=== PATIENT | female | born 1995 | race Caucasian/White ===

== ENCOUNTER 2021-01-10 13:49 | Day surgery (SDC) | payer OTHER ==
[~2021-01-10] VITALS: Ht 149.9 cm; Wt 70.9 kg
[2021-01-10] MEDS ORDERED: OSTEOBLOX CF C1 EACH (14:17)
[2021-01-10] MEDS ORDERED: ELDERTONIC LIQ473 ML (14:17)
[2021-01-10] MEDS ORDERED: PROG100 (14:17)
--- NOTE | 2021-01-10 14:21 | NUR ---
01/10/21 1421 Marcy Lozada 1 TRY RIGHT HAND NO FLASH
== END 2021-01-10 15:35 | disposition home or self-care (01) ==
LOC: ORSCSDS 13:49
PROVIDERS: Internal Medicine Gastroenterology
PROC: 0DJD8ZZ Inspection of Lower Intestinal Tract, Via Natural or Artificial Opening Endoscopic (ICD-10-PCS; principal; 2021-01-10 15:15)
PROC: 0DB68ZX Excision of Stomach, Via Natural or Artificial Opening Endoscopic, Diagnostic (ICD-10-PCS; principal; 2021-01-10 15:15)
PROC: 0DB98ZX Excision of Duodenum, Via Natural or Artificial Opening Endoscopic, Diagnostic (ICD-10-PCS; principal; 2021-01-10 15:15)
DX: D50.9 Iron deficiency anemia, unspecified (principal); D51.9 Vitamin B12 deficiency anemia, unspecified; K29.50 Unspecified chronic gastritis without bleeding; R53.83 Other fatigue
CPT/HCPCS: 88305; 88342; J2250; J2704; J7120

== ENCOUNTER → 2024-04-01 | Outpatient (CLI) | payer BC, OTHER ==
[~2024-04-01] MED LIST: ELDERTONIC LIQ473 ML; OSTEOBLOX CF C1 EACH; PROG100
== END | disposition home or self-care (01) ==
LOC: LAB SHORT 11:31
DX: Z34.83 Encounter for supervision of other normal pregnancy, third trimester (principal); Z3A.36 36 weeks gestation of pregnancy
CPT/HCPCS: 87081; 87086; 87150

== ENCOUNTER 2024-04-29 18:52 | Inpatient (IN) | payer BC ==
[~2024-04-29] VITALS: Ht 149.9 cm; Wt 90.8 kg
[2024-04-29] MEDS ORDERED: Lactated Ringer's 1,000 ML IV SCH (19:05)
[2024-04-29] MEDS ORDERED: LEVOTHYROXINE137 M11 PO (19:48)
[2024-04-29] MEDS ORDERED: 1/2 NS 250ml250 ML (19:48)
[2024-04-29] MEDS ORDERED: Misoprostol 25 MCG Tab VAG SCH (20:00)
[2024-04-29 20:16] VITALS: BP 127/71
[2024-04-29 20:19] LABS: BASOPHILS ABSOLUTE AUTO 0.02 K/mm3 (0.00-0.23); BASOPHILS PERCENT AUTO 0 % (0-2); EOSINOPHILS ABSOLUTE AUTO 0.07 K/mm3 (0.00-0.68); EOSINOPHILS PERCENT AUTO 1 % (0-6); Hematocrit 33.8 % (33.0-51.0); Hemoglobin 11.7 g/dL (11.5-16.0); IMMATURE GRAN ABSOLUTE AUTO 0.04 K/mm3 (0.00-0.10); IMMATURE GRAN PERCENT AUTO 1 % (0-1); LYMPHOCYTES ABSOLUTE AUTO 2.32 K/mm3 (0.84-5.20); LYMPHOCYTES PERCENT AUTO 28 % (21-46); MONOCYTES ABSOLUTE AUTO 0.86 K/mm3 (0.16-1.47); MONOCYTES PERCENT AUTO 10 % (4-13); Mean Corpuscular HGB 29.2 pg (26.0-34.0); Mean Corpuscular HGB Conc 34.6 g/dL (31.5-36.5); Mean Corpuscular Volume 84 fL (80-100); Mean Platelet Volume 11.3 fL (9.1-12.4); NEUTROPHILS ABSOLUTE AUTO 5.03 K/mm3 (1.96-9.15); NEUTROPHILS PERCENT AUTO 60 % (41-73); Platelet Count 273 K/mm3 (150-400); RDW Standard Deviation 43.8 fL (35.1-46.3); Red Blood Cell Count 4.01 M/mm3 (3.80-5.20); White Blood Cell Count 8.34 K/mm3 (4.00-11.30)
[2024-04-30] VITALS (51 sets, daily range): BP systolic 108–178; BP diastolic 53–87
[2024-04-30] MEDS ORDERED: Levothyroxine Sodium 0.137 MG Tab PO SCH (06:00)
[2024-04-30] MEDS ORDERED: Misoprostol 200 MCG Tab PR PRN ×2 (06:10→22:45)
[2024-04-30] MEDS ORDERED: Acetaminophen 500 MG Tab PO PRN ×2 (06:10→22:45)
[2024-04-30] MEDS ORDERED: OXYTOCIN/RINGER'S LACTATE 500 ML IV PRN (06:10)
[2024-04-30] MEDS ORDERED: Ondansetron HCl 2 MG / ML 2ML Vial IV PRN ×2 (06:10→22:45)
[2024-04-30] MEDS ORDERED: Misoprostol 200 MCG Tab BC PRN (06:10)
[2024-04-30] MEDS ORDERED: Methylergonovine Maleate 0.2MG / ML 1ML Amp IM PRN ×2 (06:10→22:45)
[2024-04-30] MEDS ORDERED: Carboprost Tromethamine 250 MCG/ML 1ML Amp IM PRN ×2 (06:10→22:40)
[2024-04-30] MEDS ORDERED: Oxytocin 10 Unit / ML Vial IM PRN (06:10)
[2024-04-30] MEDS ORDERED: Calcium Carbonate 500 MG Tab Chew PO PRN (06:15)
[2024-04-30] MEDS ORDERED: Tranexamic Acid 100 ML IV PRN (06:20)
[2024-04-30] MEDS ORDERED: FentaNYL 2mcg/ml-Bup 0.1% Epd 250 ML EPI PRN (07:15)
[2024-04-30] MEDS ORDERED: ePHEDrine Sulfate 50 MG/ML 1ML Injection XX PRN (07:15)
[2024-04-30] MEDS ORDERED: Lactated Ringer's 1,000 ML IV SCH ×2 (07:15)
[2024-04-30] MEDS ORDERED: FentaNYL Citrate 50 MCG/ML 2 ML Injection IV PRN (07:20)
[2024-04-30] MEDS ORDERED: IBUP800 PO (08:40)
[2024-04-30] MEDS ORDERED: OXYTOCIN/RINGER'S LACTATE 500 ML IV SCH (10:15)
[2024-04-30] MEDS ORDERED: NS 1,000 ML IV ONE (18:14)
[2024-04-30] MEDS ORDERED: NS 1,000 ML IV SCH (18:45)
[2024-04-30] MEDS ORDERED: CeFAZolin Sodium 2,000 MG in NS 100 ML IV SCH (20:25)
[2024-04-30] MEDS ORDERED: Azithromycin 500 MG in NS 250 ML IV SCH (20:25)
[2024-04-30] MEDS ORDERED: Lactated Ringer's 1,000 ML IV ONE (20:25)
[2024-04-30] MEDS ORDERED: Metoclopramide HCl 5MG / ML 2ML Vial IV ONE (20:30)
[2024-04-30] MEDS ORDERED: Citric Acid/Sodium Citrate 30 ML BTL PO ONE (20:35)
[2024-04-30] MEDS ORDERED: FentaNYL Citrate 50 MCG/ML 2 ML Injection ONE (20:43)
[2024-04-30] MEDS ORDERED: Oxytocin 10 Unit / ML Vial ONE ×2 (21:19→21:43)
[2024-04-30] MEDS ORDERED: Lidocaine HCl 2% 10 ML SDA ONE (21:22)
[2024-04-30] MEDS ORDERED: Methylergonovine Maleate 0.2MG / ML 1ML Amp ONE (21:44)
[2024-04-30 21:50] LABS: PCO2 Cord - Arterial 59.1 mmHg (40-50); PO2 Cord - Arterial < 14.0 mmHg (16-20); pH Cord - Arterial 7.24 (7.28-7.35)
[2024-04-30 21:52] LABS: PCO2 Cord - Venous 49.6 mmHg (40-50); PO2 Cord - Venous 15.1 mmHg (28-32); pH Umbilical Cord - Venous 7.31 (7.26-7.35)
[2024-04-30] MEDS ORDERED: Ketorolac Tromethamine 30mg Vial ONE (21:59)
[2024-04-30] MEDS ORDERED: Phenylephrine HCl 100 MCG/ML-NS 10MLSYR (1MG/10ML) ONE (22:04)
[2024-04-30] MEDS ORDERED: OxyCODONE 5 mg/Acetamin 325 mg TABLET PO PRN (22:45)
[2024-04-30] MEDS ORDERED: Metoclopramide HCl 10 MG Tab PO PRN (22:45)
[2024-04-30] MEDS ORDERED: Misoprostol 200 MCG Tab BC ONE (22:55)
[2024-04-30] MEDS ORDERED: Ketorolac Tromethamine 30mg Vial IV SCH (23:00)
[2024-05-01] VITALS (9 sets, daily range): BP systolic 115–162; BP diastolic 57–74
[2024-05-01 05:56] LABS: BASOPHILS ABSOLUTE AUTO 0.03 K/mm3 (0.00-0.23); BASOPHILS PERCENT AUTO 0 % (0-2); EOSINOPHILS ABSOLUTE AUTO 0.04 K/mm3 (0.00-0.68); EOSINOPHILS PERCENT AUTO 0 % (0-6); Hematocrit 32.1 % (33.0-51.0); Hemoglobin 10.8 g/dL (11.5-16.0); IMMATURE GRAN ABSOLUTE AUTO 0.03 K/mm3 (0.00-0.10); IMMATURE GRAN PERCENT AUTO 0 % (0-1); LYMPHOCYTES ABSOLUTE AUTO 1.91 K/mm3 (0.84-5.20); LYMPHOCYTES PERCENT AUTO 18 % (21-46); MONOCYTES ABSOLUTE AUTO 0.79 K/mm3 (0.16-1.47); MONOCYTES PERCENT AUTO 8 % (4-13); Mean Corpuscular HGB 28.6 pg (26.0-34.0); Mean Corpuscular HGB Conc 33.6 g/dL (31.5-36.5); Mean Corpuscular Volume 85 fL (80-100); Mean Platelet Volume 10.8 fL (9.1-12.4); NEUTROPHILS ABSOLUTE AUTO 7.74 K/mm3 (1.96-9.15); NEUTROPHILS PERCENT AUTO 73 % (41-73); Platelet Count 208 K/mm3 (150-400); RDW Coefficient Variation 14.2 % (11.7-14.2); RDW Standard Deviation 43.6 fL (35.1-46.3); Red Blood Cell Count 3.78 M/mm3 (3.80-5.20); White Blood Cell Count 10.54 K/mm3 (4.00-11.30)
[2024-05-01] MEDS ORDERED: Ibuprofen 400 MG Tab PO SCH (16:00)
[2024-05-01] MEDS ORDERED: Ketorolac Tromethamine 30mg Vial IV ONE (16:20)
[2024-05-02 00:12] VITALS: BP 153/72
[2024-05-02 00:14] VITALS: BP 130/69
[2024-05-02 04:35] VITALS: BP 130/61
[2024-05-02 08:24] VITALS: BP 129/70
--- NOTE | 2024-05-02 10:25 | NUR ---
RIK DRESSED REMOVED PER DR. THOMPSON REQUEST. INCISION CLEAN WITH STERI-STRIPS. NO DRAINAGE. OLD/DRIED DRAINAGE ON ORIGINAL DRESSING. NEW RIK PLACED.
[2024-05-02] MEDS ORDERED: Percocet 5-3251 EACH PO (10:28)
[2024-05-02] MEDS ORDERED: IBUP600 PO (10:30)
[2024-05-02 11:24] VITALS: BP 135/63
== END 2024-05-02 12:10 | disposition home or self-care (01) | DRG 787 ==
LOC: OBS 18:52 → BC 19:02
PROVIDERS: ADMIT Family Medicine
PROC: 10D00Z1 Extraction of Products of Conception, Low, Open Approach (ICD-10-PCS; principal; 2024-04-30 21:00)
DX: O48.0 Post-term pregnancy (principal); O98.32 Other infections with a predominantly sexual mode of transmission complicating childbirth; O76 Abnormality in fetal heart rate and rhythm complicating labor and delivery; A60.09 Herpesviral infection of other urogenital tract; Z3A.40 40 weeks gestation of pregnancy; Z37.0 Single live birth; O99.284 Endocrine, nutritional and metabolic diseases complicating childbirth; E03.9 Hypothyroidism, unspecified; Z79.890 Hormone replacement therapy
CPT/HCPCS: 36415; 51702; 82803; 85025; 86850; 86900; 86901; 86923; A9270; J0690; J1885; J2001; J2210; J2371; J2405; J2590; J3010; J7030; J7120